=== PATIENT | male | born 1990 | race African-American/Black ===

== ENCOUNTER → 2018-01-31 | Outpatient (CLI) | payer OTHER ==
[~2018-01-31] MED LIST: MULT-658 PO; OXYC-302 PO
== END | disposition home or self-care (01) ==
LOC: STAR 14:35
PROVIDERS: ATTEND Surgery
DX: Z02.9 Encounter for administrative examinations, unspecified (principal)

== ENCOUNTER 2018-02-09 13:22 | Day surgery (SDC) | payer OTHER ==
[~2018-02-09] VITALS: Ht 193 cm; Wt 89.1 kg
[~2018-02-09 13:22] MED LIST changes: +BUPIVACAINE/PF-EPI 0.5% 1:200K ONE; -OXYC-302 PO
[2018-02-09] MEDS ORDERED: LACTATED RINGERS 1,000 ML IV SCH ×2 (13:29→18:30)
[2018-02-09 13:49] VITALS: BP 136/80
[2018-02-09] MEDS ORDERED: MIDAZOLAM 1 MG/ML, 2ML ONE (14:43)
[2018-02-09] MEDS ORDERED: FENTANYL PF 250 MCG/5ML ONE (14:43)
[2018-02-09] MEDS ORDERED: PROPOFOL 10 MG/ML, 20ML ONE (14:44)
[2018-02-09] MEDS ORDERED: DEXAMETHASONE 4 MG/ML, 1ML ONE (14:44)
[2018-02-09] MEDS ORDERED: NEOSTIGMINE 1 MG/ML, 10ML ONE (14:44)
[2018-02-09] MEDS ORDERED: CEFAZOLIN 1,000 MG ONE (14:44)
[2018-02-09] MEDS ORDERED: ONDANSETRON 2MG/ML, 2ML ONE (14:44)
[2018-02-09] MEDS ORDERED: GLYCOPYRROLATE 0.2MG/1ML, 5ML ONE (14:44)
[2018-02-09] MEDS ORDERED: ROCURONIUM 10MG/ML,5ML ONE (14:44)
[2018-02-09] MEDS ORDERED: SUCCINYLCHOLINE 20 MG/ML, 10ML ONE (14:44)
[2018-02-09] MEDS ORDERED: LIDOCAINE 4%, 4 ML SYR/CANN TP ONE (15:00)
[2018-02-09] MEDS ORDERED: EPHEDRINE 50 MG/ML, 1ML ONE (15:00)
[2018-02-09] MEDS ORDERED: ONDANSETRON 2MG/ML, 2ML IV PRN (16:00)
[2018-02-09] MEDS ORDERED: PROMETHAZINE 25 MG SUPP PR PRN (16:00)
[2018-02-09] MEDS ORDERED: ONDANSETRON ODT 8 MG PO PRN (16:00)
[2018-02-09] MEDS ORDERED: PROMETHAZINE 25 MG/ML, 1ML IV PRN (16:00)
[2018-02-09] MEDS ORDERED: MORPHINE SULFATE 4 MG/ML, 1ML IVPush PRN ×2 (16:00→18:30)
[2018-02-09] MEDS ORDERED: MEPERIDINE/PF 25MG/0.5ML IVPush PRN (16:00)
[2018-02-09] MEDS ORDERED: OXYcodone 5 MG/5 ML ORAL.SOL UDC PO PRN (16:00)
[2018-02-09] MEDS ORDERED: HYDROmorphone 2 MG/ML, 1ML IV PRN (16:00)
[2018-02-09] MEDS ORDERED: ACETAMINOPHEN 325 MG TABLET PO PRN (16:00)
[2018-02-09] MEDS ORDERED: FENTANYL PF 100 MCG/2ML ONE (17:20)
[2018-02-09] MEDS: FENTANYL PF 100 MCG/2ML IV PRN ×2 (17:21→17:26)
[2018-02-09] MEDS ORDERED: OXYcodone 5 MG/5 ML ORAL.SOL UDC ONE (17:25)
[2018-02-09] MEDS ORDERED: OXYcodone/APAP 5/325MG TABLET PO PRN ×2 (18:30)
[2018-02-09] MEDS ORDERED: ONDANSETRON 2MG/ML, 2ML IVPush PRN (18:30)
[2018-02-09] MEDS ORDERED: OXYC-302 PO (19:25)
[2018-02-10] MEDS ORDERED: MULTIVITAMIN 1 TABLET PO SCH (09:00)
== END 2018-02-09 20:40 | disposition home or self-care (01) ==
LOC: OR 13:22 → 4NOR 18:10 → OR 20:40
PROVIDERS: ATTEND Surgery
DX: K40.90 Unilateral inguinal hernia, without obstruction or gangrene, not specified as recurrent (principal); J45.909 Unspecified asthma, uncomplicated; F19.90 Other psychoactive substance use, unspecified, uncomplicated; Z98.890 Other specified postprocedural states
CPT/HCPCS: 49650; C1781; J0330; J0690; J1100; J2250; J2405; J2704; J2710; J3010; J3490; J7120; S2900; G0378

== ENCOUNTER 2018-02-10 03:57 | Emergency (ER) | payer OTHER ==
[~2018-02-10] VITALS: Ht 193 cm; Wt 91.0 kg
[~2018-02-10 03:57] MED LIST changes: -BUPIVACAINE/PF-EPI 0.5% 1:200K ONE; +OXYC-302 PO
[2018-02-10 04:00] VITALS: BP 107/64
== END 2018-02-10 04:34 | disposition home or self-care (01) ==
LOC: ED 04:20
DX: K91.840 Postprocedural hemorrhage of a digestive system organ or structure following a digestive system procedure (principal)
CPT/HCPCS: 99282